=== PATIENT | male | born 1940 | race Caucasian/White ===

== ENCOUNTER 2017-09-24 05:58 | Inpatient (IN) | payer OTHER, MEDICARE ==
[2017-09-24] MEDS: ONDANSETRON 4 MG INJ IV (07:21)
[2017-09-24] MEDS: HYDROmorphONE 1 MG/ML SYG IV (07:21)
[2017-09-24 07:25] LABS: ADD UMIC YES; UR ASCORBIC ACID NEGATIVE (NEGATIVE); UR BILIRUBIN (Dip) NEGATIVE (NEGATIVE); UR BLOOD (Dip) NEGATIVE (NEGATIVE); UR CLARITY CLEAR (CLEAR); UR COLOR STRAW (YELLOW); UR GLUCOSE (Dip) 1+ mg/dL (NEGATIVE); UR KETONES (Dip) NEGATIVE (NEGATIVE); UR LEUKOCYTE ESTERASE (Dip) NEGATIVE Leu/ul (NEGATIVE); UR NITRITE (Dip) NEGATIVE (NEGATIVE); UR RBC 0 /HPF (0-5); UR SPECIFIC GRAVITY (Dip) 1.008 (1.003-1.030); UR TOTAL PROTEIN (Dip) 3+ mg/dl (NEGATIVE); UR UROBILINOGEN (Dip) NEGATIVE (NEGATIVE); UR WBC 0 /HPF (0-5)
[2017-09-24 07:37] LABS: ADD MAN DIFF? NO
[2017-09-24 07:42] LABS: WHITE BLOOD COUNT 4.5 10^3/ul (4.8-10.8)
[2017-09-24 07:42] LABS: ABNORMAL IP MESSAGE 1; BASOPHILS % 0.4 % (0.0-2.0); EOSINOPHILS # 0.1 10^3/ul (0.0-0.5); EOSINOPHILS % 1.8 % (0.0-7.0); HEMATOCRIT 35.7 % (42.0-52.0); HEMOGLOBIN 10.9 g/dl (14.0-18.0); LYMPHOCYTES # 0.8 10^3/ul (0.8-2.9); LYMPHOCYTES % 17.4 % (15.0-51.0); MEAN CORPUSCULAR HEMOGLOBIN 28.5 pg (29.0-33.0); MEAN CORPUSCULAR HGB CONC 30.5 g/dl (32.0-37.0); MEAN CORPUSCULAR VOLUME 93.2 fl (82.0-101.0); MEAN PLATELET VOLUME 11.1 fl (7.4-10.4); MONOCYTE # 0.4 10^3/ul (0.3-0.9); MONOCYTES % 8.8 % (0.0-11.0); NEUTROPHIL # 3.2 10^3/ul (1.6-7.5); NEUTROPHILS % 71.2 % (39.0-77.0); PLATELET COUNT 98 10^3/UL (140-415); POSITIVE DIFF @See below; RED BLOOD COUNT 3.83 10^6/ul (4.70-6.10); RED CELL DISTRIBUTION WIDTH 15.6 % (11.5-14.5)
[2017-09-24 08:02] LABS: ANION GAP 15 (8-16); BLOOD UREA NITROGEN 42 mg/dl (7-20); CALCIUM 8.2 mg/dl (8.4-10.2); CARBON DIOXIDE 19 mmol/L (21-31); CHLORIDE 113 mmol/L (97-110); CREATININE 6.36 mg/dl (0.61-1.24); GLUCOSE 103 mg/dl (70-220); SODIUM 141 mmol/L (135-144)
[2017-09-24 08:18] LABS: POTASSIUM 6.1 mmol/L (3.5-5.1)
[2017-09-24] MEDS: INSULIN REGULAR, HUMAN 100 UNIT/1 ML 3ML VIAL IVP (09:59)
[2017-09-24] MEDS: DEXTROSE 50% 50 ML SYRINGE IV (09:59)
[2017-09-24] MEDS ORDERED: DEXTROSE 50% 50 ML SYRINGE IV (10:00)
[2017-09-24] MEDS ORDERED: ONDANSETRON 4 MG INJ IV ×2 (10:00→11:30)
[2017-09-24] MEDS ORDERED: ACETAMINOPHEN 325 MG TAB PO (10:00)
[2017-09-24] MEDS: NA BICARBONATE 8.4% 50 ML SYG IV (10:01)
[2017-09-24] MEDS: NA POLYST SULFON 15 GM/60 ML BTL PO (10:03)
[2017-09-24] MEDS ORDERED: LORAZEPAM 2 MG INJ IV (11:30)
[2017-09-24] MEDS ORDERED: MAGNESIUM HYDROXIDE 30ML CUP PO (11:30)
[2017-09-24] MEDS ORDERED: ALBUTEROL/IPRATROPIUM (NEB) 3 ML AMP HHN (11:30)
[2017-09-24] MEDS ORDERED: NITROGLYCERIN (SL) 0.4 MG TAB SL (11:30)
[2017-09-24] MEDS ORDERED: NA PHOSPHATE/BIPHOS 133 ML ENEMA PR (11:30)
[2017-09-24] MEDS ORDERED: morphine 2 MG INJ IV (11:30)
[2017-09-24 12:49] LABS: FREE T4 (FREE THYROXINE) 1.17 ng/dl (0.85-1.93)
[2017-09-24 13:58] LABS: TROPONIN-I 0.013 ng/ml (0.000-0.120)
[2017-09-24] MEDS ORDERED: morphine LIQ (10 MG/5 ML) CUP PO (18:58)
[2017-09-24] MEDS: HEPARIN 5,000 UNIT/0.5 ML VIAL SC (20:34)
[2017-09-25] MEDS: PANTOPRAZOLE (EC) 40 MG TAB PO (06:31)
[2017-09-25] MEDS: LEVOTHYROXINE 88 MCG TAB PO (06:31)
[2017-09-25] MEDS: HYDROCODONE/APAP (5/325) TAB PO ×2 (06:34→23:10)
[2017-09-25 08:53] LABS: ADD MAN DIFF? NO
[2017-09-25 09:00] LABS: ABNORMAL IP MESSAGE 1; BASOPHILS % 0.2 % (0.0-2.0); EOSINOPHILS # 0.1 10^3/ul (0.0-0.5); EOSINOPHILS % 1.4 % (0.0-7.0); HEMATOCRIT 35.6 % (42.0-52.0); LYMPHOCYTES # 0.7 10^3/ul (0.8-2.9); LYMPHOCYTES % 11.4 % (15.0-51.0); MEAN CORPUSCULAR HEMOGLOBIN 28.5 pg (29.0-33.0); MEAN CORPUSCULAR HGB CONC 30.9 g/dl (32.0-37.0); MEAN CORPUSCULAR VOLUME 92.2 fl (82.0-101.0); MEAN PLATELET VOLUME 11.7 fl (7.4-10.4); MONOCYTE # 0.4 10^3/ul (0.3-0.9); MONOCYTES % 7.1 % (0.0-11.0); NEUTROPHIL # 4.7 10^3/ul (1.6-7.5); PLATELET COUNT 92 10^3/UL (140-415); POSITIVE DIFF @See below; RED BLOOD COUNT 3.86 10^6/ul (4.70-6.10); RED CELL DISTRIBUTION WIDTH 15.7 % (11.5-14.5)
[2017-09-25 09:00] LABS: WHITE BLOOD COUNT 5.9 10^3/ul (4.8-10.8)
[2017-09-25 09:08] LABS: HEMOGLOBIN A1C 5.6 % (0-5.9)
[2017-09-25] MEDS: SOD CHLORIDE 0.9% 1,000 ML IV (09:15)
[2017-09-25 09:17] LABS: ANION GAP 9 (8-16); BLOOD UREA NITROGEN 44 mg/dl (7-20); CARBON DIOXIDE 22 mmol/L (21-31); CHLORIDE 114 mmol/L (97-110); CREATININE 5.75 mg/dl (0.61-1.24); GLUCOSE 91 mg/dl (70-220); MAGNESIUM 1.7 mg/dl (1.7-2.5); POTASSIUM 5.7 mmol/L (3.5-5.1); SODIUM 139 mmol/L (135-144)
[2017-09-25] MEDS: AMLODIPINE 5 MG TAB PO (09:19)
[2017-09-25 09:20] LABS: CHOL/HDL RATIO 2.4 RATIO; HDL CHOLESTEROL 44 mg/dl (31-75); LDL CHOLESTEROL,CALCULATED 36 mg/dl; TRIGLYCERIDES 132 mg/dl (0-149)
[2017-09-25 09:20] LABS: CHOLESTEROL 106 mg/dl (100-200)
[2017-09-25] MEDS: ISOSORBIDE MONONITRATE(SR)30 MG TAB PO (09:20)
[2017-09-25] MEDS: FERROUS SULFATE (EC) 325 MG TAB PO (09:20)
[2017-09-25] MEDS: ASPIRIN (EC) 81 MG TAB PO (09:20)
[2017-09-25] MEDS: DOCUSATE SODIUM 100 MG CAP PO (09:20)
[2017-09-25] MEDS: HEPARIN 5,000 UNIT/0.5 ML VIAL SC ×2 (09:25→21:28)
[2017-09-25 11:38] LABS: ADD UMIC YES; UR ASCORBIC ACID NEGATIVE (NEGATIVE); UR BACTERIA FEW /HPF (NONE SEEN); UR BILIRUBIN (Dip) NEGATIVE (NEGATIVE); UR BLOOD (Dip) NEGATIVE (NEGATIVE); UR CLARITY CLEAR (CLEAR); UR COLOR STRAW (YELLOW); UR GLUCOSE (Dip) 1+ mg/dL (NEGATIVE); UR KETONES (Dip) NEGATIVE (NEGATIVE); UR LEUKOCYTE ESTERASE (Dip) NEGATIVE Leu/ul (NEGATIVE); UR NITRITE (Dip) NEGATIVE (NEGATIVE); UR RBC 1 /HPF (0-5); UR TOTAL PROTEIN (Dip) 3+ mg/dl (NEGATIVE); UR UROBILINOGEN (Dip) NEGATIVE (NEGATIVE); UR WBC 1 /HPF (0-5)
[2017-09-25 11:58] LABS: CREATININE,URINE RANDOM 69.03 mg/dl (20-370)
[2017-09-25 11:58] LABS: SODIUM,URINE RANDOM 52 mmol/L (30-90)
[2017-09-25] MEDS: NA POLYST SULFON 15 GM/60 ML BTL PO (12:15)
[2017-09-25 14:43] LABS: INR 1.02; PROTIME 13.5 Sec (11.9-14.9); PT RATIO 1.1
[2017-09-25 14:44] LABS: PARTIAL THROMBOPLASTIN TIME 31.6 Sec (25.0-35.0)
[2017-09-25 18:32] LABS: PROSTATE SPECIFIC ANTIGEN 0.8 ng/ml (0.0-4.0)
[2017-09-26] MEDS: HEPARIN 1000 UNITS/ML 10 ML INJ CATHETER (01:20)
[2017-09-26] MEDS: SOD CHLORIDE 0.9% 1,000 ML IV (04:00)
[2017-09-26] MEDS: LEVOTHYROXINE 88 MCG TAB PO (06:27)
[2017-09-26] MEDS: PANTOPRAZOLE (EC) 40 MG TAB PO (06:27)
[2017-09-26 07:23] LABS: ADD MAN DIFF? NO
[2017-09-26 07:23] LABS: WHITE BLOOD COUNT 5.9 10^3/ul (4.8-10.8)
[2017-09-26 07:24] LABS: ABNORMAL IP MESSAGE 1; BASOPHILS % 0.2 % (0.0-2.0); EOSINOPHILS # 0.1 10^3/ul (0.0-0.5); EOSINOPHILS % 1.7 % (0.0-7.0); HEMATOCRIT 34.6 % (42.0-52.0); HEMOGLOBIN 10.4 g/dl (14.0-18.0); LYMPHOCYTES # 0.7 10^3/ul (0.8-2.9); LYMPHOCYTES % 11.6 % (15.0-51.0); MEAN CORPUSCULAR HEMOGLOBIN 28.2 pg (29.0-33.0); MEAN CORPUSCULAR HGB CONC 30.1 g/dl (32.0-37.0); MEAN CORPUSCULAR VOLUME 93.8 fl (82.0-101.0); MEAN PLATELET VOLUME 10.9 fl (7.4-10.4); MONOCYTE # 0.6 10^3/ul (0.3-0.9); MONOCYTES % 9.9 % (0.0-11.0); NEUTROPHIL # 4.5 10^3/ul (1.6-7.5); NEUTROPHILS % 75.9 % (39.0-77.0); PLATELET COUNT 86 10^3/UL (140-415); POSITIVE DIFF @See below; RED BLOOD COUNT 3.69 10^6/ul (4.70-6.10); RED CELL DISTRIBUTION WIDTH 15.7 % (11.5-14.5)
[2017-09-26 07:42] LABS: MAGNESIUM 1.5 mg/dl (1.7-2.5)
[2017-09-26 07:42] LABS: PHOSPHORUS 6.2 mg/dl (2.5-4.9)
[2017-09-26 07:46] LABS: ANION GAP 14 (8-16); BLOOD UREA NITROGEN 42 mg/dl (7-20); CALCIUM 7.9 mg/dl (8.4-10.2); CARBON DIOXIDE 22 mmol/L (21-31); CHLORIDE 112 mmol/L (97-110); CREATININE 5.87 mg/dl (0.61-1.24); GLUCOSE 92 mg/dl (70-220); POTASSIUM 5.1 mmol/L (3.5-5.1); SODIUM 143 mmol/L (135-144)
[2017-09-26] MEDS: FERROUS SULFATE (EC) 325 MG TAB PO (08:56)
[2017-09-26] MEDS: DOCUSATE SODIUM 100 MG CAP PO (08:56)
[2017-09-26] MEDS: ISOSORBIDE MONONITRATE(SR)30 MG TAB PO (08:56)
[2017-09-26] MEDS: AMLODIPINE 5 MG TAB PO (08:56)
[2017-09-26] MEDS: HEPARIN 5,000 UNIT/0.5 ML VIAL SC ×2 (08:57→22:40)
[2017-09-26] MEDS ORDERED: HEPARIN 1000 UNITS/NS (A-LINE) 1,000 ML (11:31)
[2017-09-26] MEDS ORDERED: LIDOCAINE 1% (MDV) 20 ML INJ (11:31)
[2017-09-26] MEDS ORDERED: MIDAZOLAM 1 MG/ML 2 ML INJ (11:31)
[2017-09-26] MEDS ORDERED: IODIXANOL LOCM 50 ML BTL (11:31)
[2017-09-26] MEDS ORDERED: HEPARIN 1000 UNITS/ML 10 ML INJ (11:31)
[2017-09-26] MEDS ORDERED: FENTAnyl 50 MCG/ML VIAL (11:32)
[2017-09-26 11:45] LABS: HAAIG REFLEX REFLEX FILED
[2017-09-26 12:25] LABS: HEPATITIS B SURFACE ANTIGEN NEGATIVE (NEGATIVE)
[2017-09-26] MEDS: ASPIRIN (EC) 81 MG TAB PO (12:31)
[2017-09-26 12:43] LABS: HEPATITIS B CORE ANTIBODY NEGATIVE (NEGATIVE); HEPATITIS C VIRAL ANTIBODY NEGATIVE (NEGATIVE)
[2017-09-26 16:21] LABS: CREATININE, RANDOM URINE 84 mg/dL (20-370); MICROALBUMIN 231.5 mg/dL; MICROALBUMIN/CREATININE RATIO 2756 (<30)
[2017-09-26] MEDS: HYDROCODONE/APAP (5/325) TAB PO (17:30)
[2017-09-26] MEDS: ACETAMINOPHEN 325 MG TAB PO (22:39)
[2017-09-26] MEDS ORDERED: ALBUMIN HUMAN 25% 100 ML IV (23:00)
[2017-09-27 05:25] LABS: ADD MAN DIFF? NO
[2017-09-27 05:44] LABS: ABNORMAL IP MESSAGE 1; BASOPHILS % 0.2 % (0.0-2.0); EOSINOPHILS # 0.1 10^3/ul (0.0-0.5); HEMOGLOBIN 10.1 g/dl (14.0-18.0); LYMPHOCYTES # 0.5 10^3/ul (0.8-2.9); LYMPHOCYTES % 8.4 % (15.0-51.0); MEAN CORPUSCULAR HEMOGLOBIN 28.2 pg (29.0-33.0); MEAN CORPUSCULAR HGB CONC 30.6 g/dl (32.0-37.0); MEAN CORPUSCULAR VOLUME 92.2 fl (82.0-101.0); MEAN PLATELET VOLUME 11.1 fl (7.4-10.4); MONOCYTE # 0.5 10^3/ul (0.3-0.9); NEUTROPHIL # 4.8 10^3/ul (1.6-7.5); NEUTROPHILS % 80.9 % (39.0-77.0); PLATELET COUNT 74 10^3/UL (140-415); POSITIVE DIFF @See below; RED BLOOD COUNT 3.58 10^6/ul (4.70-6.10); RED CELL DISTRIBUTION WIDTH 15.2 % (11.5-14.5)
[2017-09-27 05:53] LABS: ANION GAP 11 (8-16); BLOOD UREA NITROGEN 39 mg/dl (7-20); CALCIUM 7.9 mg/dl (8.4-10.2); CARBON DIOXIDE 25 mmol/L (21-31); CHLORIDE 110 mmol/L (97-110); GLUCOSE 98 mg/dl (70-220); POTASSIUM 4.3 mmol/L (3.5-5.1); SODIUM 142 mmol/L (135-144)
[2017-09-27 05:55] LABS: PHOSPHORUS 4.7 mg/dl (2.5-4.9)
[2017-09-27 05:55] LABS: MAGNESIUM 1.5 mg/dl (1.7-2.5)
[2017-09-27] MEDS: PANTOPRAZOLE (EC) 40 MG TAB PO (06:30)
[2017-09-27] MEDS: LEVOTHYROXINE 88 MCG TAB PO (06:30)
[2017-09-27] MEDS: FUROSEMIDE 20 MG TAB PO (06:31)
[2017-09-27] MEDS: BENAZEPRIL 10 MG TAB PO (09:00)
[2017-09-27] MEDS: ISOSORBIDE MONONITRATE(SR)30 MG TAB PO (09:00)
[2017-09-27] MEDS: AMLODIPINE 5 MG TAB PO (09:00)
[2017-09-27] MEDS: DOCUSATE SODIUM 100 MG CAP PO (09:04)
[2017-09-27] MEDS: ALLOPURINOL 100 MG TAB PO (09:05)
[2017-09-27] MEDS: FERROUS SULFATE (EC) 325 MG TAB PO (09:05)
[2017-09-27] MEDS: ASPIRIN (EC) 81 MG TAB PO (09:05)
[2017-09-27] MEDS: HEPARIN 5,000 UNIT/0.5 ML VIAL SC ×2 (09:08→22:01)
[2017-09-27] MEDS: MAGNESIUM SULFATE 2 GM/50 ML 50 ML IVPB (10:15)
[2017-09-28] MEDS: HEPARIN 1000 UNITS/ML 10 ML INJ CATHETER (00:12)
[2017-09-28 05:13] LABS: ADD MAN DIFF? NO
[2017-09-28 05:15] LABS: WHITE BLOOD COUNT 4.8 10^3/ul (4.8-10.8)
[2017-09-28 05:15] LABS: ABNORMAL IP MESSAGE 1; BASOPHILS % 0.2 % (0.0-2.0); EOSINOPHILS # 0.1 10^3/ul (0.0-0.5); EOSINOPHILS % 1.9 % (0.0-7.0); HEMATOCRIT 33.6 % (42.0-52.0); HEMOGLOBIN 10.5 g/dl (14.0-18.0); LYMPHOCYTES # 0.7 10^3/ul (0.8-2.9); LYMPHOCYTES % 13.8 % (15.0-51.0); MEAN CORPUSCULAR HEMOGLOBIN 28.5 pg (29.0-33.0); MEAN CORPUSCULAR HGB CONC 31.3 g/dl (32.0-37.0); MEAN CORPUSCULAR VOLUME 91.3 fl (82.0-101.0); MONOCYTE # 0.5 10^3/ul (0.3-0.9); MONOCYTES % 10.6 % (0.0-11.0); NEUTROPHIL # 3.5 10^3/ul (1.6-7.5); NEUTROPHILS % 73.1 % (39.0-77.0); PLATELET COUNT 70 10^3/UL (140-415); POSITIVE DIFF @See below; RED BLOOD COUNT 3.68 10^6/ul (4.70-6.10); RED CELL DISTRIBUTION WIDTH 14.8 % (11.5-14.5)
[2017-09-28 05:32] LABS: ANION GAP 11 (8-16); BLOOD UREA NITROGEN 31 mg/dl (7-20); CARBON DIOXIDE 30 mmol/L (21-31); CHLORIDE 107 mmol/L (97-110); CREATININE 3.92 mg/dl (0.61-1.24); GLUCOSE 92 mg/dl (70-220); POTASSIUM 4.5 mmol/L (3.5-5.1); SODIUM 143 mmol/L (135-144)
[2017-09-28] MEDS: PANTOPRAZOLE (EC) 40 MG TAB PO (06:03)
[2017-09-28] MEDS: LEVOTHYROXINE 88 MCG TAB PO (06:07)
[2017-09-28] MEDS: FUROSEMIDE 20 MG TAB PO (06:07)
[2017-09-28] MEDS: ALLOPURINOL 100 MG TAB PO (08:48)
[2017-09-28] MEDS: DOCUSATE SODIUM 100 MG CAP PO (08:48)
[2017-09-28] MEDS: FERROUS SULFATE (EC) 325 MG TAB PO (08:48)
[2017-09-28] MEDS: BENAZEPRIL 10 MG TAB PO (08:49)
[2017-09-28] MEDS: ISOSORBIDE MONONITRATE(SR)30 MG TAB PO (08:49)
[2017-09-28] MEDS: AMLODIPINE 5 MG TAB PO (08:49)
[2017-09-28] MEDS: ASPIRIN (EC) 81 MG TAB PO (08:49)
[2017-09-28] MEDS: HEPARIN 5,000 UNIT/0.5 ML VIAL SC (09:00)
[2017-09-28] MEDS ORDERED: SODIUM CHLORIDE 0.9% 1L BAG IV (18:30)
[2017-09-28] MEDS ORDERED: ALBUMIN HUMAN 25% 50 ML IV (18:30)
[2017-09-29 05:54] LABS: ADD MAN DIFF? NO
[2017-09-29 05:56] LABS: ABNORMAL IP MESSAGE 1; BASOPHILS % 0.2 % (0.0-2.0); EOSINOPHILS # 0.1 10^3/ul (0.0-0.5); EOSINOPHILS % 2.2 % (0.0-7.0); HEMATOCRIT 33.6 % (42.0-52.0); HEMOGLOBIN 10.4 g/dl (14.0-18.0); LYMPHOCYTES # 0.9 10^3/ul (0.8-2.9); LYMPHOCYTES % 17.4 % (15.0-51.0); MEAN CORPUSCULAR HEMOGLOBIN 28.7 pg (29.0-33.0); MEAN CORPUSCULAR VOLUME 92.8 fl (82.0-101.0); MEAN PLATELET VOLUME 12.1 fl (7.4-10.4); MONOCYTE # 0.6 10^3/ul (0.3-0.9); MONOCYTES % 12.3 % (0.0-11.0); NEUTROPHIL # 3.3 10^3/ul (1.6-7.5); NEUTROPHILS % 67.5 % (39.0-77.0); PLATELET COUNT 77 10^3/UL (140-415); POSITIVE DIFF @See below; RED BLOOD COUNT 3.62 10^6/ul (4.70-6.10); RED CELL DISTRIBUTION WIDTH 14.8 % (11.5-14.5)
[2017-09-29 06:22] LABS: ANION GAP 11 (8-16); BLOOD UREA NITROGEN 46 mg/dl (7-20); CALCIUM 8.1 mg/dl (8.4-10.2); CARBON DIOXIDE 30 mmol/L (21-31); CHLORIDE 107 mmol/L (97-110); CREATININE 4.72 mg/dl (0.61-1.24); GLUCOSE 91 mg/dl (70-220); POTASSIUM 4.7 mmol/L (3.5-5.1); SODIUM 143 mmol/L (135-144)
[2017-09-29] MEDS: LEVOTHYROXINE 88 MCG TAB PO (07:14)
[2017-09-29] MEDS: PANTOPRAZOLE (EC) 40 MG TAB PO (07:14)
[2017-09-29] MEDS: FUROSEMIDE 20 MG TAB PO (07:14)
[2017-09-29] MEDS: ISOSORBIDE MONONITRATE(SR)30 MG TAB PO (08:38)
[2017-09-29] MEDS: BENAZEPRIL 10 MG TAB PO (08:38)
[2017-09-29] MEDS: DOCUSATE SODIUM 100 MG CAP PO (08:38)
[2017-09-29] MEDS: ALLOPURINOL 100 MG TAB PO (08:39)
[2017-09-29] MEDS: AMLODIPINE 5 MG TAB PO (08:39)
[2017-09-29] MEDS: FERROUS SULFATE (EC) 325 MG TAB PO (08:39)
[2017-09-29] MEDS: ASPIRIN (EC) 81 MG TAB PO (08:39)
[2017-09-29] MEDS: HEPARIN 1000 UNITS/ML 10 ML INJ CATHETER (17:01)
[2017-09-30] MEDS: FUROSEMIDE 20 MG TAB PO (05:42)
[2017-09-30] MEDS: PANTOPRAZOLE (EC) 40 MG TAB PO (05:42)
[2017-09-30] MEDS: LEVOTHYROXINE 88 MCG TAB PO (05:42)
[2017-09-30] MEDS: hydrALAzine 20 MG INJ IV (05:44)
[2017-09-30 06:05] LABS: ADD MAN DIFF? NO
[2017-09-30 06:15] LABS: ABNORMAL IP MESSAGE 1; BASOPHILS % 0.2 % (0.0-2.0); EOSINOPHILS # 0.1 10^3/ul (0.0-0.5); EOSINOPHILS % 1.7 % (0.0-7.0); HEMATOCRIT 33.6 % (42.0-52.0); HEMOGLOBIN 10.4 g/dl (14.0-18.0); LYMPHOCYTES # 0.8 10^3/ul (0.8-2.9); LYMPHOCYTES % 14.6 % (15.0-51.0); MEAN CORPUSCULAR HEMOGLOBIN 28.4 pg (29.0-33.0); MEAN CORPUSCULAR VOLUME 91.8 fl (82.0-101.0); MEAN PLATELET VOLUME 11.8 fl (7.4-10.4); MONOCYTE # 0.6 10^3/ul (0.3-0.9); MONOCYTES % 11.2 % (0.0-11.0); NEUTROPHIL # 3.8 10^3/ul (1.6-7.5); NEUTROPHILS % 71.7 % (39.0-77.0); PLATELET COUNT 77 10^3/UL (140-415); POSITIVE DIFF @See below; RED BLOOD COUNT 3.66 10^6/ul (4.70-6.10); RED CELL DISTRIBUTION WIDTH 14.6 % (11.5-14.5)
[2017-09-30 06:15] LABS: WHITE BLOOD COUNT 5.3 10^3/ul (4.8-10.8)
[2017-09-30 06:52] LABS: ANION GAP 10 (8-16); BLOOD UREA NITROGEN 39 mg/dl (7-20); CALCIUM 8.5 mg/dl (8.4-10.2); CARBON DIOXIDE 30 mmol/L (21-31); CHLORIDE 107 mmol/L (97-110); CREATININE 3.94 mg/dl (0.61-1.24); GLUCOSE 92 mg/dl (70-220); POTASSIUM 4.7 mmol/L (3.5-5.1); SODIUM 142 mmol/L (135-144)
[2017-09-30] MEDS: ASPIRIN (EC) 81 MG TAB PO (08:13)
[2017-09-30] MEDS: DOCUSATE SODIUM 100 MG CAP PO (08:13)
[2017-09-30] MEDS: FERROUS SULFATE (EC) 325 MG TAB PO (08:13)
[2017-09-30] MEDS: ISOSORBIDE MONONITRATE(SR)30 MG TAB PO (08:14)
[2017-09-30] MEDS: AMLODIPINE 5 MG TAB PO (08:14)
[2017-09-30] MEDS: ALLOPURINOL 100 MG TAB PO (08:14)
[2017-09-30] MEDS: BENAZEPRIL 10 MG TAB PO (08:14)
[2017-09-30] MEDS: ACETAMINOPHEN 325 MG TAB PO (11:13)
[2017-10-01 05:38] LABS: ADD MAN DIFF? NO
[2017-10-01 05:47] LABS: ABNORMAL IP MESSAGE 1; BASOPHILS % 0.2 % (0.0-2.0); EOSINOPHILS # 0.1 10^3/ul (0.0-0.5); EOSINOPHILS % 1.9 % (0.0-7.0); HEMATOCRIT 32.3 % (42.0-52.0); HEMOGLOBIN 9.9 g/dl (14.0-18.0); LYMPHOCYTES # 0.8 10^3/ul (0.8-2.9); LYMPHOCYTES % 15.4 % (15.0-51.0); MEAN CORPUSCULAR HEMOGLOBIN 28.2 pg (29.0-33.0); MEAN CORPUSCULAR HGB CONC 30.7 g/dl (32.0-37.0); MEAN PLATELET VOLUME 12.1 fl (7.4-10.4); MONOCYTE # 0.7 10^3/ul (0.3-0.9); MONOCYTES % 12.8 % (0.0-11.0); NEUTROPHIL # 3.7 10^3/ul (1.6-7.5); NEUTROPHILS % 69.3 % (39.0-77.0); PLATELET COUNT 78 10^3/UL (140-415); POSITIVE DIFF @See below; RED BLOOD COUNT 3.51 10^6/ul (4.70-6.10); RED CELL DISTRIBUTION WIDTH 14.6 % (11.5-14.5)
[2017-10-01 05:47] LABS: WHITE BLOOD COUNT 5.3 10^3/ul (4.8-10.8)
[2017-10-01] MEDS: PANTOPRAZOLE (EC) 40 MG TAB PO (06:06)
[2017-10-01] MEDS: FUROSEMIDE 20 MG TAB PO (06:06)
[2017-10-01] MEDS: LEVOTHYROXINE 88 MCG TAB PO (06:06)
[2017-10-01 06:18] LABS: ANION GAP 12 (8-16); BLOOD UREA NITROGEN 47 mg/dl (7-20); CALCIUM 8.5 mg/dl (8.4-10.2); CARBON DIOXIDE 29 mmol/L (21-31); CHLORIDE 104 mmol/L (97-110); CREATININE 4.81 mg/dl (0.61-1.24); GLUCOSE 91 mg/dl (70-220); POTASSIUM 4.6 mmol/L (3.5-5.1); SODIUM 140 mmol/L (135-144)
[2017-10-01] MEDS: ALLOPURINOL 100 MG TAB PO (08:56)
[2017-10-01] MEDS: FERROUS SULFATE (EC) 325 MG TAB PO (08:56)
[2017-10-01] MEDS: DOCUSATE SODIUM 100 MG CAP PO (08:56)
[2017-10-01] MEDS: ISOSORBIDE MONONITRATE(SR)30 MG TAB PO (08:57)
[2017-10-01] MEDS: ASPIRIN (EC) 81 MG TAB PO (08:57)
[2017-10-01] MEDS: AMLODIPINE 5 MG TAB PO (08:58)
[2017-10-01] MEDS: BENAZEPRIL 10 MG TAB PO (08:58)
[2017-10-01] MEDS: HEPARIN 1000 UNITS/ML 10 ML INJ CATHETER (13:06)
[2017-10-02] MEDS: PANTOPRAZOLE (EC) 40 MG TAB PO ×2 (06:00→21:12)
[2017-10-02] MEDS: FUROSEMIDE 20 MG TAB PO ×2 (06:00→21:13)
[2017-10-02] MEDS: LEVOTHYROXINE 88 MCG TAB PO ×2 (06:00→21:12)
[2017-10-02] MEDS: ASPIRIN (EC) 81 MG TAB PO (09:00)
[2017-10-02] MEDS: FERROUS SULFATE (EC) 325 MG TAB PO (09:00)
[2017-10-02] MEDS: ISOSORBIDE MONONITRATE(SR)30 MG TAB PO (09:00)
[2017-10-02] MEDS: BENAZEPRIL 10 MG TAB PO (09:00)
[2017-10-02] MEDS: AMLODIPINE 5 MG TAB PO (09:00)
[2017-10-02] MEDS: DOCUSATE SODIUM 100 MG CAP PO (09:00)
[2017-10-02] MEDS: ALLOPURINOL 100 MG TAB PO (09:00)
[2017-10-02 12:51] LABS: INR 0.98; PROTIME 13.1 Sec (11.9-14.9)
[2017-10-03 05:12] LABS: ADD MAN DIFF? NO
[2017-10-03 05:24] LABS: WHITE BLOOD COUNT 5.5 10^3/ul (4.8-10.8)
[2017-10-03 05:24] LABS: ABNORMAL IP MESSAGE 1; BASOPHILS % 0.2 % (0.0-2.0); EOSINOPHILS # 0.1 10^3/ul (0.0-0.5); HEMATOCRIT 32.6 % (42.0-52.0); HEMOGLOBIN 10.1 g/dl (14.0-18.0); MEAN CORPUSCULAR HEMOGLOBIN 28.3 pg (29.0-33.0); MEAN CORPUSCULAR VOLUME 91.3 fl (82.0-101.0); MEAN PLATELET VOLUME 11.4 fl (7.4-10.4); MONOCYTE # 0.6 10^3/ul (0.3-0.9); MONOCYTES % 10.6 % (0.0-11.0); NEUTROPHIL # 3.8 10^3/ul (1.6-7.5); NEUTROPHILS % 68.8 % (39.0-77.0); PLATELET COUNT 93 10^3/UL (140-415); POSITIVE DIFF @See below; RED BLOOD COUNT 3.57 10^6/ul (4.70-6.10); RED CELL DISTRIBUTION WIDTH 14.3 % (11.5-14.5)
[2017-10-03 05:47] LABS: ANION GAP 13 (8-16); BLOOD UREA NITROGEN 59 mg/dl (7-20); CALCIUM 8.4 mg/dl (8.4-10.2); CARBON DIOXIDE 27 mmol/L (21-31); CHLORIDE 104 mmol/L (97-110); CREATININE 5.29 mg/dl (0.61-1.24); GLUCOSE 95 mg/dl (70-220); POTASSIUM 4.5 mmol/L (3.5-5.1); SODIUM 139 mmol/L (135-144)
[2017-10-03] MEDS: FUROSEMIDE 20 MG TAB PO (06:00)
[2017-10-03] MEDS: PANTOPRAZOLE (EC) 40 MG TAB PO (06:00)
[2017-10-03] MEDS: LEVOTHYROXINE 88 MCG TAB PO (06:56)
[2017-10-03] MEDS: DOCUSATE SODIUM 100 MG CAP PO (08:48)
[2017-10-03] MEDS: ALLOPURINOL 100 MG TAB PO (08:50)
[2017-10-03] MEDS: ISOSORBIDE MONONITRATE(SR)30 MG TAB PO (08:51)
[2017-10-03] MEDS: BENAZEPRIL 10 MG TAB PO (08:52)
[2017-10-03] MEDS: FERROUS SULFATE (EC) 325 MG TAB PO (08:53)
[2017-10-03] MEDS: AMLODIPINE 5 MG TAB PO (08:54)
[2017-10-03] MEDS: ASPIRIN (EC) 81 MG TAB PO (08:56)
[2017-10-03] MEDS ORDERED: LIDOCAINE 1% (MPF) 30 ML INJ (11:17)
[2017-10-03] MEDS ORDERED: THROMBIN 5000 UNIT VIAL (12:05)
[2017-10-03] MEDS: HEPARIN 1000 UNITS/ML 10 ML INJ CATHETER (12:12)
[2017-10-03] MEDS ORDERED: VANCOMYCIN 1 GM (PMX) 250 ML (12:39)
[2017-10-03] MEDS ORDERED: MIDAZOLAM 1 MG/ML 2 ML INJ (12:44)
[2017-10-03] MEDS ORDERED: FENTAnyl 50 MCG/ML VIAL (12:44)
[2017-10-03] MEDS ORDERED: ROPIVACAINE 0.5 % 30 ML VIAL (12:44)
[2017-10-03] MEDS: HEPARIN 1000 UNITS/ML 10 ML INJ (13:16)
[2017-10-03] MEDS: GELATIN SIZE 100 SPONGE (13:44)
[2017-10-03] MEDS ORDERED: ONDANSETRON 4 MG INJ (13:44)
[2017-10-03] MEDS: THROMBIN 5000 UNIT VIAL (13:44)
[2017-10-03] MEDS ORDERED: FAMOTIDINE 20 MG INJ (13:44)
[2017-10-03] MEDS ORDERED: LIDOCAINE 2% (SDV) 5 ML INJ (14:32)
[2017-10-03] MEDS ORDERED: PROPOFOL 20 ML (14:32)
[2017-10-03] MEDS ORDERED: ONDANSETRON 4 MG INJ IV (15:00)
[2017-10-03] MEDS ORDERED: MEPERIDINE 25 MG INJ IV (15:00)
[2017-10-03] MEDS ORDERED: FENTAnyl 50 MCG/ML VIAL IV (15:00)
[2017-10-03] MEDS ORDERED: hydrALAzine 20 MG INJ IV (15:00)
[2017-10-03] MEDS ORDERED: DIPHENHYDRAMINE 50 MG INJ IV (15:00)
[2017-10-03] MEDS ORDERED: HYDROmorphONE 1 MG/5 ML IV SYRINGE IV (15:00)
[2017-10-03] MEDS ORDERED: PROCHLORPERAZINE 10 MG INJ IV (15:00)
[2017-10-04 05:13] LABS: WHITE BLOOD COUNT 5.9 10^3/ul (4.8-10.8)
[2017-10-04 05:13] LABS: ADD MAN DIFF? NO; BASOPHILS % 0.2 % (0.0-2.0); EOSINOPHILS # 0.1 10^3/ul (0.0-0.5); EOSINOPHILS % 1.4 % (0.0-7.0); HEMATOCRIT 36.7 % (42.0-52.0); LYMPHOCYTES # 0.9 10^3/ul (0.8-2.9); LYMPHOCYTES % 15.3 % (15.0-51.0); MEAN CORPUSCULAR VOLUME 93.4 fl (82.0-101.0); MEAN PLATELET VOLUME 11.8 fl (7.4-10.4); MONOCYTE # 0.6 10^3/ul (0.3-0.9); MONOCYTES % 10.4 % (0.0-11.0); NEUTROPHIL # 4.3 10^3/ul (1.6-7.5); NEUTROPHILS % 72.4 % (39.0-77.0); PLATELET COUNT 106 10^3/UL (140-415); POSITIVE DIFF @See below; RED BLOOD COUNT 3.93 10^6/ul (4.70-6.10)
[2017-10-04] MEDS: ACETAMINOPHEN 325 MG TAB PO (05:47)
[2017-10-04] MEDS: PANTOPRAZOLE (EC) 40 MG TAB PO (05:48)
[2017-10-04] MEDS: DOCUSATE SODIUM 100 MG CAP PO ×2 (05:48→09:12)
[2017-10-04] MEDS: LEVOTHYROXINE 88 MCG TAB PO (05:48)
[2017-10-04] MEDS: FUROSEMIDE 20 MG TAB PO (05:48)
[2017-10-04] MEDS: NACL 0.9% 3 ML SYG IV (05:49)
[2017-10-04 05:58] LABS: ANION GAP 13 (8-16); BLOOD UREA NITROGEN 44 mg/dl (7-20); CALCIUM 8.8 mg/dl (8.4-10.2); CARBON DIOXIDE 30 mmol/L (21-31); CHLORIDE 100 mmol/L (97-110); GLUCOSE 100 mg/dl (70-220); POTASSIUM 4.8 mmol/L (3.5-5.1); SODIUM 138 mmol/L (135-144)
[2017-10-04] MEDS: BENAZEPRIL 10 MG TAB PO (09:00)
[2017-10-04] MEDS: AMLODIPINE 5 MG TAB PO (09:00)
[2017-10-04] MEDS: ASPIRIN (EC) 81 MG TAB PO (09:09)
[2017-10-04] MEDS: FERROUS SULFATE (EC) 325 MG TAB PO (09:11)
[2017-10-04] MEDS: ALLOPURINOL 100 MG TAB PO (09:12)
[2017-10-04] MEDS: ISOSORBIDE MONONITRATE(SR)30 MG TAB PO (09:13)
[2017-10-05 04:52] LABS: ADD MAN DIFF? NO
[2017-10-05 04:59] LABS: BASOPHILS % 0.1 % (0.0-2.0); EOSINOPHILS # 0.1 10^3/ul (0.0-0.5); EOSINOPHILS % 1.4 % (0.0-7.0); HEMATOCRIT 32.7 % (42.0-52.0); HEMOGLOBIN 10.2 g/dl (14.0-18.0); LYMPHOCYTES # 1.2 10^3/ul (0.8-2.9); LYMPHOCYTES % 16.8 % (15.0-51.0); MEAN CORPUSCULAR HEMOGLOBIN 28.6 pg (29.0-33.0); MEAN CORPUSCULAR HGB CONC 31.2 g/dl (32.0-37.0); MEAN CORPUSCULAR VOLUME 91.6 fl (82.0-101.0); MEAN PLATELET VOLUME 11.8 fl (7.4-10.4); MONOCYTE # 0.8 10^3/ul (0.3-0.9); MONOCYTES % 10.9 % (0.0-11.0); NEUTROPHIL # 4.9 10^3/ul (1.6-7.5); NEUTROPHILS % 69.9 % (39.0-77.0); PLATELET COUNT 103 10^3/UL (140-415); POSITIVE DIFF @See below; RED BLOOD COUNT 3.57 10^6/ul (4.70-6.10); RED CELL DISTRIBUTION WIDTH 13.9 % (11.5-14.5)
[2017-10-05 05:20] LABS: ANION GAP 18 (8-16); BLOOD UREA NITROGEN 67 mg/dl (7-20); CALCIUM 8.3 mg/dl (8.4-10.2); CARBON DIOXIDE 24 mmol/L (21-31); CHLORIDE 99 mmol/L (97-110); CREATININE 7.05 mg/dl (0.61-1.24); GLUCOSE 101 mg/dl (70-220); POTASSIUM 4.5 mmol/L (3.5-5.1); SODIUM 136 mmol/L (135-144)
[2017-10-05] MEDS: FUROSEMIDE 20 MG TAB PO (06:00)
[2017-10-05] MEDS: PANTOPRAZOLE (EC) 40 MG TAB PO (06:09)
[2017-10-05] MEDS: LEVOTHYROXINE 88 MCG TAB PO (06:09)
[2017-10-05] MEDS: FERROUS SULFATE (EC) 325 MG TAB PO (08:28)
[2017-10-05] MEDS: ASPIRIN (EC) 81 MG TAB PO (08:28)
[2017-10-05] MEDS: DOCUSATE SODIUM 100 MG CAP PO (08:28)
[2017-10-05] MEDS: ALLOPURINOL 100 MG TAB PO (08:28)
[2017-10-05] MEDS: ISOSORBIDE MONONITRATE(SR)30 MG TAB PO (09:00)
[2017-10-05] MEDS: BENAZEPRIL 10 MG TAB PO (09:00)
[2017-10-05] MEDS: AMLODIPINE 5 MG TAB PO (09:00)
[2017-10-06] MEDS: HEPARIN 1000 UNITS/ML 10 ML INJ CATHETER (00:40)
[2017-10-06 05:09] LABS: ADD MAN DIFF? NO
[2017-10-06 05:14] LABS: BASOPHILS % 0.2 % (0.0-2.0); EOSINOPHILS # 0.1 10^3/ul (0.0-0.5); EOSINOPHILS % 2.1 % (0.0-7.0); HEMATOCRIT 35.6 % (42.0-52.0); HEMOGLOBIN 11.2 g/dl (14.0-18.0); LYMPHOCYTES # 0.9 10^3/ul (0.8-2.9); LYMPHOCYTES % 15.5 % (15.0-51.0); MEAN CORPUSCULAR HEMOGLOBIN 28.2 pg (29.0-33.0); MEAN CORPUSCULAR HGB CONC 31.5 g/dl (32.0-37.0); MEAN CORPUSCULAR VOLUME 89.7 fl (82.0-101.0); MEAN PLATELET VOLUME 11.6 fl (7.4-10.4); MONOCYTE # 0.7 10^3/ul (0.3-0.9); MONOCYTES % 11.5 % (0.0-11.0); NEUTROPHILS % 69.8 % (39.0-77.0); PLATELET COUNT 114 10^3/UL (140-415); POSITIVE DIFF @See below; RED BLOOD COUNT 3.97 10^6/ul (4.70-6.10); RED CELL DISTRIBUTION WIDTH 13.8 % (11.5-14.5)
[2017-10-06 05:14] LABS: WHITE BLOOD COUNT 5.7 10^3/ul (4.8-10.8)
[2017-10-06 05:51] LABS: ANION GAP 14 (8-16); BLOOD UREA NITROGEN 36 mg/dl (7-20); CALCIUM 8.6 mg/dl (8.4-10.2); CARBON DIOXIDE 28 mmol/L (21-31); CHLORIDE 102 mmol/L (97-110); GLUCOSE 102 mg/dl (70-220); POTASSIUM 4.2 mmol/L (3.5-5.1); SODIUM 140 mmol/L (135-144)
[2017-10-06] MEDS: FUROSEMIDE 20 MG TAB PO (05:54)
[2017-10-06] MEDS: PANTOPRAZOLE (EC) 40 MG TAB PO (05:55)
[2017-10-06] MEDS: LEVOTHYROXINE 88 MCG TAB PO (06:15)
[2017-10-06] MEDS: ASPIRIN (EC) 81 MG TAB PO (09:00)
[2017-10-06] MEDS: DOCUSATE SODIUM 100 MG CAP PO (09:00)
[2017-10-06] MEDS: ALLOPURINOL 100 MG TAB PO (09:30)
[2017-10-06] MEDS: FERROUS SULFATE (EC) 325 MG TAB PO (09:30)
[2017-10-06] MEDS: ISOSORBIDE MONONITRATE(SR)30 MG TAB PO (09:32)
[2017-10-06] MEDS: AMLODIPINE 5 MG TAB PO (09:33)
[2017-10-06] MEDS: BENAZEPRIL 10 MG TAB PO (09:33)
[2017-10-06] MEDS: HYDROCODONE/APAP (5/325) TAB PO (09:34)
[2017-10-06] MEDS: ACETAMINOPHEN 325 MG TAB PO (13:41)
[2017-10-07 05:10] LABS: ADD MAN DIFF? NO
[2017-10-07 05:27] LABS: BASOPHILS % 0.3 % (0.0-2.0); EOSINOPHILS # 0.1 10^3/ul (0.0-0.5); EOSINOPHILS % 1.9 % (0.0-7.0); HEMATOCRIT 34.4 % (42.0-52.0); HEMOGLOBIN 10.6 g/dl (14.0-18.0); LYMPHOCYTES # 1.3 10^3/ul (0.8-2.9); LYMPHOCYTES % 19.7 % (15.0-51.0); MEAN CORPUSCULAR HGB CONC 30.8 g/dl (32.0-37.0); MEAN PLATELET VOLUME 11.5 fl (7.4-10.4); MONOCYTE # 0.8 10^3/ul (0.3-0.9); NEUTROPHIL # 4.4 10^3/ul (1.6-7.5); NEUTROPHILS % 65.1 % (39.0-77.0); PLATELET COUNT 139 10^3/UL (140-415); RED BLOOD COUNT 3.78 10^6/ul (4.70-6.10); RED CELL DISTRIBUTION WIDTH 14.1 % (11.5-14.5)
[2017-10-07 05:27] LABS: WHITE BLOOD COUNT 6.7 10^3/ul (4.8-10.8)
[2017-10-07 05:53] LABS: ANION GAP 17 (8-16); BLOOD UREA NITROGEN 54 mg/dl (7-20); CALCIUM 8.5 mg/dl (8.4-10.2); CARBON DIOXIDE 26 mmol/L (21-31); CHLORIDE 100 mmol/L (97-110); CREATININE 6.92 mg/dl (0.61-1.24); GLUCOSE 90 mg/dl (70-220); POTASSIUM 4.5 mmol/L (3.5-5.1); SODIUM 138 mmol/L (135-144)
[2017-10-07] MEDS: FUROSEMIDE 20 MG TAB PO (06:00)
[2017-10-07] MEDS: LEVOTHYROXINE 88 MCG TAB PO (06:15)
[2017-10-07] MEDS: PANTOPRAZOLE (EC) 40 MG TAB PO (06:15)
[2017-10-07] MEDS: ISOSORBIDE MONONITRATE(SR)30 MG TAB PO (09:00)
[2017-10-07] MEDS: AMLODIPINE 5 MG TAB PO (09:00)
[2017-10-07] MEDS: DOCUSATE SODIUM 100 MG CAP PO (10:06)
[2017-10-07] MEDS: ASPIRIN (EC) 81 MG TAB PO (10:06)
[2017-10-07] MEDS: ALLOPURINOL 100 MG TAB PO (10:06)
[2017-10-07] MEDS: FERROUS SULFATE (EC) 325 MG TAB PO (10:10)
[2017-10-07] MEDS: HEPARIN 1000 UNITS/ML 10 ML INJ CATHETER (18:22)
== END 2017-10-07 20:45 | disposition home or self-care (01) | DRG 673 ==
LOC: MS1 09-27 03:31 → E/R 05:58 → MS4 09:51
PROC: 02HV33Z Insertion of Infusion Device into Superior Vena Cava, Percutaneous Approach (ICD-10-PCS; principal; 2017-09-26 11:26)
PROC: 031809D Bypass Left Brachial Artery to Upper Arm Vein with Autologous Venous Tissue, Open Approach (ICD-10-PCS; 2017-09-26 11:26)
PROC: 05B Upper Veins, Excision (ICD-10-PCS; 2017-09-26 11:26)
PROC: B5181ZA Fluoroscopy of Superior Vena Cava using Low Osmolar Contrast, Guidance (ICD-10-PCS; 2017-09-26 11:26)
PROC: 5A1D70Z Performance of Urinary Filtration, Intermittent, Less than 6 Hours Per Day (ICD-10-PCS; 2017-09-26 11:26)
PROC: 5A1D70Z Performance of Urinary Filtration, Intermittent, Less than 6 Hours Per Day (ICD-10-PCS; 2017-09-26 11:26)
PROC: 5A1D70Z Performance of Urinary Filtration, Intermittent, Less than 6 Hours Per Day (ICD-10-PCS; 2017-09-26 11:26)
PROC: 5A1D70Z Performance of Urinary Filtration, Intermittent, Less than 6 Hours Per Day (ICD-10-PCS; 2017-09-26 11:26)
PROC: 5A1D70Z Performance of Urinary Filtration, Intermittent, Less than 6 Hours Per Day (ICD-10-PCS; 2017-09-26 11:26)
PROC: 5A1D70Z Performance of Urinary Filtration, Intermittent, Less than 6 Hours Per Day (ICD-10-PCS; 2017-09-26 11:26)
DX: I12.0 Hypertensive chronic kidney disease with stage 5 chronic kidney disease or end stage renal disease (principal); N18.6 End stage renal disease; D61.818 Other pancytopenia; E87.2 Acidosis; N17.9 Acute kidney failure, unspecified; E11.22 Type 2 diabetes mellitus with diabetic chronic kidney disease; Z99.2 Dependence on renal dialysis; E78.5 Hyperlipidemia, unspecified; I25.10 Atherosclerotic heart disease of native coronary artery without angina pectoris; E87.5 Hyperkalemia; E03.9 Hypothyroidism, unspecified; E87.70 Fluid overload, unspecified; D63.1 Anemia in chronic kidney disease; Z79.82 Long term (current) use of aspirin; Z79.4 Long term (current) use of insulin
CPT/HCPCS: 36415; 71045; 74176; 76775; 76937; 80048; 80061; 81001; 81003; 82043; 82962; 83036; 83735; 84100; 84153; 84154; 84155; 84300; 84439; 84443; 84484; 85025; 85610; 85730; 86704; 86709; 86803; 87340; 90935; 92610; 93005; 93923; 93970; 96374; 96375; 97110; 97116; 97162; 97167; 97530; 97535; 99285-25

== ENCOUNTER 2018-01-02 07:33 | Day surgery (SDC) | payer OTHER ==
[~2018-01-02 07:33] MED LIST: CEFAZOLIN 1 GM INJ; LIDOCAINE 2% (SDV) 5 ML INJ; ROPIVACAINE 0.5 % 30 ML VIAL
[2018-01-02 08:40] LABS: ADD MAN DIFF? NO
[2018-01-02 08:48] LABS: ABNORMAL IP MESSAGE 1; BASOPHILS % 0.5 % (0.0-2.0); EOSINOPHILS # 0.1 10^3/ul (0.0-0.5); EOSINOPHILS % 2.2 % (0.0-7.0); HEMATOCRIT 44.4 % (42.0-52.0); HEMOGLOBIN 13.8 g/dl (14.0-18.0); LYMPHOCYTES # 1.2 10^3/ul (0.8-2.9); LYMPHOCYTES % 32.9 % (15.0-51.0); MEAN CORPUSCULAR HEMOGLOBIN 27.8 pg (29.0-33.0); MEAN CORPUSCULAR HGB CONC 31.1 g/dl (32.0-37.0); MEAN CORPUSCULAR VOLUME 89.5 fl (82.0-101.0); MONOCYTE # 0.4 10^3/ul (0.3-0.9); MONOCYTES % 10.3 % (0.0-11.0); NEUTROPHILS % 53.8 % (39.0-77.0); PLATELET COUNT 64 10^3/UL (140-415); POSITIVE DIFF @See below; RED BLOOD COUNT 4.96 10^6/ul (4.70-6.10); RED CELL DISTRIBUTION WIDTH 14.3 % (11.5-14.5)
[2018-01-02 08:48] LABS: WHITE BLOOD COUNT 3.7 10^3/ul (4.8-10.8)
[2018-01-02 09:01] LABS: ANION GAP 15 (8-16); BLOOD UREA NITROGEN 22 mg/dl (7-20); CALCIUM 9.4 mg/dl (8.4-10.2); CARBON DIOXIDE 32 mmol/L (21-31); CHLORIDE 100 mmol/L (97-110); CREATININE 6.63 mg/dl (0.61-1.24); GLUCOSE 98 mg/dl (70-220); POTASSIUM 4.3 mmol/L (3.5-5.1); SODIUM 143 mmol/L (135-144)
[2018-01-02 09:05] LABS: INR 0.91; PROTIME 12.3 Sec (11.9-14.9)
[2018-01-02 09:06] LABS: PARTIAL THROMBOPLASTIN TIME 30.7 Sec (25.0-35.0)
[2018-01-02] MEDS ORDERED: OXYCODONE/ACETAMINOPHEN (5/325) TAB PO ×2 (09:30)
[2018-01-02] MEDS ORDERED: LABETALOL HCL 20MG INJ IV (09:30)
[2018-01-02] MEDS ORDERED: DIPHENHYDRAMINE 50 MG INJ IV (09:30)
[2018-01-02] MEDS ORDERED: MEPERIDINE 25 MG INJ IV (09:30)
[2018-01-02] MEDS ORDERED: HYDROmorphONE 1 MG/5 ML IV SYRINGE IV ×3 (09:30)
[2018-01-02] MEDS ORDERED: MIDAZOLAM 1 MG/ML 2 ML INJ IV (09:30)
[2018-01-02] MEDS ORDERED: EPHEDrine SULFATE 50 MG/5 ML SYG IV (09:30)
[2018-01-02] MEDS ORDERED: ATROPINE 1 MG/10 ML SYRINGE IV (09:30)
[2018-01-02] MEDS ORDERED: morphine (1 MG/ML) 10ML SYRINGE IV ×3 (09:30)
[2018-01-02] MEDS ORDERED: hydrALAzine 20 MG INJ IV (09:30)
[2018-01-02] MEDS ORDERED: ONDANSETRON 4 MG INJ IV (09:30)
[2018-01-02] MEDS ORDERED: FENTAnyl 50 MCG/ML VIAL IV ×2 (09:30)
[2018-01-02] MEDS: BUPIVACAINE 0.5% (SDV) 30 ML INJ (10:01)
[2018-01-02] MEDS: LIDOCAINE 1% (MPF) 30 ML INJ (10:02)
[2018-01-02] MEDS: THROMBIN 5000 UNIT VIAL (10:05)
[2018-01-02] MEDS: GELATIN SIZE 100 SPONGE (10:05)
[2018-01-02] MEDS: HEPARIN 1000 UNITS/ML 10 ML INJ (10:07)
[2018-01-02] MEDS ORDERED: ROCURONIUM 50 MG INJ (10:37)
[2018-01-02] MEDS ORDERED: GLYCOPYRROLATE 0.4 MG INJ (10:37)
[2018-01-02] MEDS ORDERED: PROPOFOL 20 ML (10:37)
[2018-01-02] MEDS ORDERED: NEOSTIGMINE 3 MG/3 ML SYRINGE (10:37)
[2018-01-02] MEDS ORDERED: LIDOCAINE 2% (SDV) 5 ML INJ (10:37)
[2018-01-02] MEDS ORDERED: MIDAZOLAM 1 MG/ML 2 ML INJ (10:38)
[2018-01-02] MEDS ORDERED: FENTAnyl 50 MCG/ML VIAL (10:38)
[2018-01-02] MEDS: DESMOPRESSIN IV (11:30)
[2018-01-02] MEDS: SOD CHLORIDE 0.9% IV (11:30)
== END 2018-01-02 13:12 | disposition home or self-care (01) ==
LOC: SDS 07:33
DX: I12.0 Hypertensive chronic kidney disease with stage 5 chronic kidney disease or end stage renal disease (principal); N18.6 End stage renal disease
CPT/HCPCS: 36819; 71045; 80048; 85025; 85610; 85730; 86850; 86900; 86901; 86920; 93005

== ENCOUNTER 2018-02-13 06:38 | Day surgery (SDC) | payer OTHER ==
[2018-02-13 07:01] LABS: ADD MAN DIFF? NO
[2018-02-13 07:04] LABS: BASOPHILS % 0.7 % (0.0-2.0); EOSINOPHILS # 0.1 10^3/ul (0.0-0.5); EOSINOPHILS % 2.7 % (0.0-7.0); HEMOGLOBIN 13.1 g/dl (14.0-18.0); LYMPHOCYTES # 1.2 10^3/ul (0.8-2.9); LYMPHOCYTES % 29.2 % (15.0-51.0); MEAN CORPUSCULAR HEMOGLOBIN 27.7 pg (29.0-33.0); MEAN CORPUSCULAR HGB CONC 31.2 g/dl (32.0-37.0); MEAN CORPUSCULAR VOLUME 88.8 fl (82.0-101.0); MEAN PLATELET VOLUME 11.1 fl (7.4-10.4); MONOCYTE # 0.4 10^3/ul (0.3-0.9); NEUTROPHIL # 2.3 10^3/ul (1.6-7.5); NEUTROPHILS % 57.2 % (39.0-77.0); POSITIVE DIFF @See below; RED BLOOD COUNT 4.73 10^6/ul (4.70-6.10); RED CELL DISTRIBUTION WIDTH 15.2 % (11.5-14.5)
[2018-02-13 07:12] LABS: HOLD TRANSMISSIONS 1; PLATELET COUNT 103 10^3/UL (140-415)
[2018-02-13] MEDS ORDERED: SOD CHLORIDE 0.9% 500 ML (07:16)
[2018-02-13] MEDS ORDERED: IODIXANOL LOCM 50 ML BTL (07:16)
[2018-02-13] MEDS ORDERED: HEPARIN 1000 UNITS/NS (A-LINE) 1,000 ML (07:17)
[2018-02-13] MEDS ORDERED: LIDOCAINE 2% (MDV) 20 ML INJ (07:17)
[2018-02-13 07:36] LABS: INR 0.92; PROTIME 12.4 Sec (11.9-14.9)
[2018-02-13 07:37] LABS: ANION GAP 17 (5-13); BLOOD UREA NITROGEN 57 mg/dl (7-20); CALCIUM 9.3 mg/dl (8.4-10.2); CARBON DIOXIDE 27 mmol/L (21-31); CHLORIDE 101 mmol/L (97-110); CREATININE 9.27 mg/dl (0.61-1.24); GLUCOSE 102 mg/dl (70-220); PARTIAL THROMBOPLASTIN TIME 31.7 Sec (23.0-35.0); POTASSIUM 4.5 mmol/L (3.5-5.1); SODIUM 145 mmol/L (135-144)
== END 2018-02-13 11:09 | disposition home or self-care (01) ==
LOC: SDS 06:38
DX: I12.0 Hypertensive chronic kidney disease with stage 5 chronic kidney disease or end stage renal disease (principal); N18.6 End stage renal disease; Z53.9 Procedure and treatment not carried out, unspecified reason
CPT/HCPCS: 80048; 85025; 85610; 85730

== ENCOUNTER 2018-03-06 05:27 | Day surgery (SDC) | payer OTHER ==
[2018-03-06 06:15] LABS: ADD MAN DIFF? NO
[2018-03-06 06:23] LABS: WHITE BLOOD COUNT 3.8 10^3/ul (4.8-10.8)
[2018-03-06 06:23] LABS: ABNORMAL IP MESSAGE 1; BASOPHILS % 0.5 % (0.0-2.0); EOSINOPHILS # 0.1 10^3/ul (0.0-0.5); EOSINOPHILS % 3.1 % (0.0-7.0); HEMATOCRIT 43.9 % (42.0-52.0); HEMOGLOBIN 13.9 g/dl (14.0-18.0); LYMPHOCYTES # 1.2 10^3/ul (0.8-2.9); LYMPHOCYTES % 31.9 % (15.0-51.0); MEAN CORPUSCULAR HGB CONC 31.7 g/dl (32.0-37.0); MEAN CORPUSCULAR VOLUME 88.5 fl (82.0-101.0); MEAN PLATELET VOLUME 10.8 fl (7.4-10.4); MONOCYTE # 0.4 10^3/ul (0.3-0.9); MONOCYTES % 9.1 % (0.0-11.0); NEUTROPHIL # 2.1 10^3/ul (1.6-7.5); NEUTROPHILS % 55.1 % (39.0-77.0); PLATELET COUNT 45 10^3/UL (140-415); POSITIVE DIFF @See below; RED BLOOD COUNT 4.96 10^6/ul (4.70-6.10); RED CELL DISTRIBUTION WIDTH 15.1 % (11.5-14.5)
[2018-03-06 06:24] LABS: ADD UMIC YES; UR ASCORBIC ACID NEGATIVE (NEGATIVE); UR BILIRUBIN (Dip) NEGATIVE (NEGATIVE); UR BLOOD (Dip) 1+ mg/dL (NEGATIVE); UR CLARITY SLIGHTLY CLOUDY (CLEAR); UR COLOR YELLOW (YELLOW); UR GLUCOSE (Dip) NEGATIVE (NEGATIVE); UR KETONES (Dip) NEGATIVE (NEGATIVE); UR LEUKOCYTE ESTERASE (Dip) NEGATIVE Leu/ul (NEGATIVE); UR MUCUS FEW /HPF (NONE SEEN); UR NITRITE (Dip) NEGATIVE (NEGATIVE); UR RBC 2 /HPF (0-5); UR SPECIFIC GRAVITY (Dip) 1.018 (1.003-1.030); UR SQUAMOUS EPITHELIAL CELL FEW /HPF (FEW); UR TOTAL PROTEIN (Dip) 3+ mg/dl (NEGATIVE); UR UROBILINOGEN (Dip) 1+ mg/dL (NEGATIVE); UR WBC 2 /HPF (0-5)
[2018-03-06 06:42] LABS: ANION GAP 10 (5-13); BLOOD UREA NITROGEN 30 mg/dl (7-20); CALCIUM 9.5 mg/dl (8.4-10.2); CARBON DIOXIDE 32 mmol/L (21-31); CHLORIDE 101 mmol/L (97-110); CREATININE 5.36 mg/dl (0.61-1.24); GLUCOSE 88 mg/dl (70-220); POTASSIUM 4.3 mmol/L (3.5-5.1); SODIUM 143 mmol/L (135-144)
[2018-03-06 06:52] LABS: INR 0.98; PARTIAL THROMBOPLASTIN TIME 30.3 Sec (23.0-35.0); PROTIME 13.1 Sec (11.9-14.9)
[2018-03-06] MEDS ORDERED: MIDAZOLAM 1 MG/ML 2 ML INJ (07:34)
[2018-03-06] MEDS ORDERED: HEPARIN 1000 UNITS/NS (A-LINE) 1,000 ML (07:34)
[2018-03-06] MEDS ORDERED: LIDOCAINE 2% (MDV) 20 ML INJ (07:34)
[2018-03-06] MEDS ORDERED: IODIXANOL LOCM 100 ML BTL (07:34)
[2018-03-06] MEDS ORDERED: FENTAnyl 50 MCG/ML VIAL (07:35)
== END 2018-03-06 08:46 | disposition home or self-care (01) ==
LOC: SDS 05:27
DX: I12.0 Hypertensive chronic kidney disease with stage 5 chronic kidney disease or end stage renal disease (principal); N18.6 End stage renal disease; E11.9 Type 2 diabetes mellitus without complications; I25.10 Atherosclerotic heart disease of native coronary artery without angina pectoris; E78.5 Hyperlipidemia, unspecified; E66.9 Obesity, unspecified; Z68.31 Body mass index [BMI] 31.0-31.9, adult
CPT/HCPCS: 36901; 80048; 81001; 85025; 85610; 85730

== ENCOUNTER 2018-03-26 06:28 | Day surgery (SDC) | payer OTHER ==
[2018-03-26 07:45] LABS: ADD MAN DIFF? NO
[2018-03-26 07:58] LABS: ADD UMIC YES; UR ASCORBIC ACID NEGATIVE (NEGATIVE); UR BACTERIA FEW /HPF (NONE SEEN); UR BILIRUBIN (Dip) NEGATIVE (NEGATIVE); UR BLOOD (Dip) 1+ mg/dL (NEGATIVE); UR CLARITY CLEAR (CLEAR); UR COLOR YELLOW (YELLOW); UR GLUCOSE (Dip) NEGATIVE (NEGATIVE); UR KETONES (Dip) NEGATIVE (NEGATIVE); UR LEUKOCYTE ESTERASE (Dip) NEGATIVE Leu/ul (NEGATIVE); UR MUCUS FEW /HPF (NONE SEEN); UR NITRITE (Dip) NEGATIVE (NEGATIVE); UR RBC 0 /HPF (0-5); UR SPECIFIC GRAVITY (Dip) 1.017 (1.003-1.030); UR SQUAMOUS EPITHELIAL CELL FEW /HPF (FEW); UR TOTAL PROTEIN (Dip) 3+ mg/dl (NEGATIVE); UR UROBILINOGEN (Dip) NEGATIVE (NEGATIVE); UR WBC 1 /HPF (0-5)
[2018-03-26] MEDS ORDERED: LIDOCAINE 2% (MDV) 20 ML INJ (08:03)
[2018-03-26] MEDS ORDERED: IODIXANOL LOCM 100 ML BTL (08:03)
[2018-03-26] MEDS ORDERED: HEPARIN 1000 UNITS/NS (A-LINE) 1,000 ML (08:03)
[2018-03-26] MEDS ORDERED: MIDAZOLAM 1 MG/ML 2 ML INJ (08:03)
[2018-03-26] MEDS ORDERED: FENTAnyl 50 MCG/ML VIAL (08:03)
[2018-03-26 08:04] LABS: ABNORMAL IP MESSAGE 1; BASOPHILS % 0.5 % (0.0-2.0); EOSINOPHILS # 0.1 10^3/ul (0.0-0.5); EOSINOPHILS % 2.8 % (0.0-7.0); HEMATOCRIT 43.3 % (42.0-52.0); HEMOGLOBIN 13.6 g/dl (14.0-18.0); LYMPHOCYTES # 1.2 10^3/ul (0.8-2.9); LYMPHOCYTES % 28.6 % (15.0-51.0); MEAN CORPUSCULAR HEMOGLOBIN 27.8 pg (29.0-33.0); MEAN CORPUSCULAR HGB CONC 31.4 g/dl (32.0-37.0); MEAN CORPUSCULAR VOLUME 88.4 fl (82.0-101.0); MEAN PLATELET VOLUME 11.4 fl (7.4-10.4); MONOCYTE # 0.4 10^3/ul (0.3-0.9); MONOCYTES % 9.7 % (0.0-11.0); NEUTROPHIL # 2.5 10^3/ul (1.6-7.5); NEUTROPHILS % 57.9 % (39.0-77.0); PLATELET COUNT 65 10^3/UL (140-415); POSITIVE DIFF @See below; RED CELL DISTRIBUTION WIDTH 14.6 % (11.5-14.5)
[2018-03-26 08:04] LABS: WHITE BLOOD COUNT 4.3 10^3/ul (4.8-10.8)
[2018-03-26 08:07] LABS: INR 0.91; PROTIME 12.3 Sec (11.9-14.9)
[2018-03-26 08:08] LABS: PARTIAL THROMBOPLASTIN TIME 31.1 Sec (23.0-35.0)
[2018-03-26 08:11] LABS: ANION GAP 14 (5-13); CARBON DIOXIDE 30 mmol/L (21-31); CHLORIDE 98 mmol/L (97-110); GLUCOSE 95 mg/dl (70-220); POTASSIUM 4.9 mmol/L (3.5-5.1); SODIUM 142 mmol/L (135-144)
[2018-03-26 08:14] LABS: HOLD TRANSMISSIONS 1
[2018-03-26 08:20] LABS: CREATININE 8.92 mg/dl (0.61-1.24)
[2018-03-26 08:21] LABS: BLOOD UREA NITROGEN 48 mg/dl (7-20)
== END 2018-03-26 10:05 | disposition home or self-care (01) ==
LOC: SDS 06:28
DX: I12.0 Hypertensive chronic kidney disease with stage 5 chronic kidney disease or end stage renal disease (principal); N18.6 End stage renal disease; E11.9 Type 2 diabetes mellitus without complications; E78.5 Hyperlipidemia, unspecified; I25.10 Atherosclerotic heart disease of native coronary artery without angina pectoris; E66.9 Obesity, unspecified; Z68.31 Body mass index [BMI] 31.0-31.9, adult
CPT/HCPCS: 37248; 37249; 75827; 80048; 81001; 82962; 85025; 85610; 85730; 93005

== ENCOUNTER 2018-04-06 15:57 | Emergency (ER) | payer OTHER | END 2018-04-06 16:37 | disposition home or self-care (01) | LOC: FTE 15:57 | DX: Z48.02 Encounter for removal of sutures (principal); I10 Essential (primary) hypertension; Z79.82 Long term (current) use of aspirin | CPT/HCPCS: 99281 ==

== ENCOUNTER 2018-06-05 06:19 | Day surgery (SDC) | payer OTHER ==
[2018-06-05] MEDS ORDERED: MIDAZOLAM 1 MG/ML 2 ML INJ (07:36)
[2018-06-05] MEDS ORDERED: IODIXANOL LOCM 100 ML BTL ×2 (07:36→07:54)
[2018-06-05] MEDS ORDERED: FENTAnyl 50 MCG/ML VIAL (07:36)
[2018-06-05] MEDS ORDERED: LIDOCAINE 1% (MDV) 20 ML INJ (07:37)
[2018-06-05 07:45] LABS: ANION GAP 10 (5-13); CARBON DIOXIDE 30 mmol/L (21-31); CHLORIDE 104 mmol/L (97-110); GLUCOSE 82 mg/dl (70-220); SODIUM 144 mmol/L (135-144)
[2018-06-05 07:48] LABS: BLOOD UREA NITROGEN 63 mg/dl (7-20); POTASSIUM 5.5 mmol/L (3.5-5.1)
[2018-06-05 07:49] LABS: CALCIUM 10.5 mg/dl (8.4-10.2)
[2018-06-05 07:51] LABS: CREATININE 10.18 mg/dl (0.61-1.24)
[2018-06-05] MEDS ORDERED: HEPARIN 1000 UNITS/ML 10 ML INJ (08:23)
== END 2018-06-05 09:40 | disposition home or self-care (01) ==
LOC: SDS 06:19
DX: T82.590A Other mechanical complication of surgically created arteriovenous fistula, initial encounter (principal); Y84.1 Kidney dialysis as the cause of abnormal reaction of the patient, or of later complication, without mention of misadventure at the time of the procedure; I12.0 Hypertensive chronic kidney disease with stage 5 chronic kidney disease or end stage renal disease; N18.6 End stage renal disease
CPT/HCPCS: 36902; 80048

== ENCOUNTER 2018-10-19 07:55 | Emergency (ER) | payer OTHER ==
[2018-10-19 09:29] LABS: ADD MAN DIFF? NO
[2018-10-19 09:30] LABS: WHITE BLOOD COUNT 4.4 10^3/ul (4.8-10.8)
[2018-10-19 09:30] LABS: ABNORMAL IP MESSAGE 1; BASOPHILS % 0.2 % (0.0-2.0); EOSINOPHILS # 0.1 10^3/ul (0.0-0.5); EOSINOPHILS % 1.1 % (0.0-7.0); HEMATOCRIT 43.4 % (42.0-52.0); HEMOGLOBIN 13.8 g/dl (14.0-18.0); LYMPHOCYTES # 1.3 10^3/ul (0.8-2.9); LYMPHOCYTES % 29.5 % (15.0-51.0); MEAN CORPUSCULAR HEMOGLOBIN 28.4 pg (29.0-33.0); MEAN CORPUSCULAR HGB CONC 31.8 g/dl (32.0-37.0); MEAN CORPUSCULAR VOLUME 89.3 fl (82.0-101.0); MEAN PLATELET VOLUME 11.8 fl (7.4-10.4); MONOCYTE # 0.5 10^3/ul (0.3-0.9); MONOCYTES % 11.8 % (0.0-11.0); NEUTROPHIL # 2.5 10^3/ul (1.6-7.5); NEUTROPHILS % 57.2 % (39.0-77.0); PLATELET COUNT 72 10^3/UL (140-415); POSITIVE DIFF @See below; RED BLOOD COUNT 4.86 10^6/ul (4.70-6.10); RED CELL DISTRIBUTION WIDTH 14.2 % (11.5-14.5)
[2018-10-19] MEDS ORDERED: MECLIZINE 12.5 MG TAB PO (09:30)
[2018-10-19] MEDS: MECLIZINE 12.5 MG TAB PO (09:40)
[2018-10-19 09:46] LABS: ANION GAP 14 (5-13); BLOOD UREA NITROGEN 41 mg/dl (7-20); CALCIUM 9.6 mg/dl (8.4-10.2); CARBON DIOXIDE 35 mmol/L (21-31); CHLORIDE 94 mmol/L (97-110); CREATININE 8.97 mg/dl (0.61-1.24); GLUCOSE 94 mg/dl (70-220); POTASSIUM 4.9 mmol/L (3.5-5.1); SODIUM 143 mmol/L (135-144)
[2018-10-19 09:51] LABS: INR 0.95; PROTIME 12.8 Sec (11.9-14.9)
[2018-10-19 09:52] LABS: PARTIAL THROMBOPLASTIN TIME 30.3 Sec (23.0-35.0)
== END 2018-10-19 11:50 | disposition home or self-care (01) ==
LOC: E/R 07:55
DX: H81.399 Other peripheral vertigo, unspecified ear (principal); D61.818 Other pancytopenia; I12.0 Hypertensive chronic kidney disease with stage 5 chronic kidney disease or end stage renal disease; N18.6 End stage renal disease; Z79.82 Long term (current) use of aspirin; Z99.2 Dependence on renal dialysis
CPT/HCPCS: 36415; 70450; 80048; 85025; 85610; 85730; 93005; 99285-25

== ENCOUNTER 2018-10-27 06:23 | Emergency (ER) | payer OTHER ==
[2018-10-27] MEDS ORDERED: SOD CHLORIDE 0.9% 1,000 ML IV (09:24)
[2018-10-27] MEDS ORDERED: ONDANSETRON 4 MG INJ IV (09:24)
[2018-10-27 09:46] LABS: ADD MAN DIFF? NO
[2018-10-27 09:48] LABS: WHITE BLOOD COUNT 4.8 10^3/ul (4.8-10.8)
[2018-10-27 09:48] LABS: ABNORMAL IP MESSAGE 1; BASOPHILS % 0.4 % (0.0-2.0); EOSINOPHILS # 0.1 10^3/ul (0.0-0.5); EOSINOPHILS % 1.3 % (0.0-7.0); HEMATOCRIT 43.6 % (42.0-52.0); HEMOGLOBIN 13.6 g/dl (14.0-18.0); LYMPHOCYTES # 1.6 10^3/ul (0.8-2.9); LYMPHOCYTES % 33.7 % (15.0-51.0); MEAN CORPUSCULAR HEMOGLOBIN 28.2 pg (29.0-33.0); MEAN CORPUSCULAR HGB CONC 31.2 g/dl (32.0-37.0); MEAN CORPUSCULAR VOLUME 90.5 fl (82.0-101.0); MEAN PLATELET VOLUME 11.2 fl (7.4-10.4); MONOCYTE # 0.4 10^3/ul (0.3-0.9); MONOCYTES % 9.1 % (0.0-11.0); NEUTROPHIL # 2.6 10^3/ul (1.6-7.5); NEUTROPHILS % 54.9 % (39.0-77.0); PLATELET COUNT 65 10^3/UL (140-415); POSITIVE DIFF @See below; RED BLOOD COUNT 4.82 10^6/ul (4.70-6.10); RED CELL DISTRIBUTION WIDTH 14.6 % (11.5-14.5)
[2018-10-27] MEDS: ONDANSETRON (ODT) 4 MG TAB ODT (09:57)
[2018-10-27] MEDS: DIAZEPAM 5 MG TAB PO (09:57)
[2018-10-27 10:06] LABS: INR 1.02; PROTIME 13.5 Sec (11.9-14.9); PT RATIO 1.1
[2018-10-27 10:07] LABS: PARTIAL THROMBOPLASTIN TIME 25.6 Sec (23.0-35.0)
[2018-10-27 10:10] LABS: ALANINE AMINOTRANSFERASE 24 IU/L (13-69); ALBUMIN 4.4 g/dl (3.3-4.9); ALBUMIN/GLOBULIN RATIO 1.29; ALKALINE PHOSPHATASE 105 IU/L (42-121); ANION GAP 9 (5-13); ASPARTATE AMINO TRANSFERASE 22 IU/L (15-46); BILIRUBIN,INDIRECT 0.4 mg/dl (0-1.1); BILIRUBIN,TOTAL 0.4 mg/dl (0.2-1.3); BLOOD UREA NITROGEN 51 mg/dl (7-20); CALCIUM 9.5 mg/dl (8.4-10.2); CARBON DIOXIDE 35 mmol/L (21-31); CHLORIDE 99 mmol/L (97-110); CREATININE 10.47 mg/dl (0.61-1.24); GLUCOSE 81 mg/dl (70-220); POTASSIUM 5.8 mmol/L (3.5-5.1); SODIUM 143 mmol/L (135-144); TOTAL PROTEIN 7.8 g/dl (6.1-8.1)
[2018-10-27 10:21] LABS: TROPONIN-I 0.018 ng/ml (0.000-0.120)
[2018-10-27] MEDS: NA POLYST SULFON 15 GM/60 ML BTL PO (10:38)
== END 2018-10-27 10:40 | disposition home or self-care (01) ==
LOC: E/R 06:23
DX: G44.209 Tension-type headache, unspecified, not intractable (principal); R42 Dizziness and giddiness; I12.0 Hypertensive chronic kidney disease with stage 5 chronic kidney disease or end stage renal disease; N18.6 End stage renal disease; R40.2142 Coma scale, eyes open, spontaneous, at arrival to emergency department; R40.2252 Coma scale, best verbal response, oriented, at arrival to emergency department; R40.2362 Coma scale, best motor response, obeys commands, at arrival to emergency department; Z99.2 Dependence on renal dialysis; Z79.82 Long term (current) use of aspirin
CPT/HCPCS: 80053; 84484; 85025; 85610; 85730; 93005; 99284-25